=== PATIENT | male | born 1985 | race Caucasian/White ===

== ENCOUNTER 2017-05-02 18:39 | Emergency (ER) | payer MEDICAID ==
[2017-05-02 18:52] VITALS: TEMP 98.4
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
[2017-05-02] MEDS ORDERED: NS 1,000 ML IV ONE (19:22)
[2017-05-02 19:39] LABS: % IMMATURE GRANULYOCYTES 0.2 % (0.0-1.1); ABSOLUTE IMMATURE GRANULOCYTES 0.02 10^3/uL (0.00-0.10); ADD DIFF? NO; ADD MORPH? NO; ADD SCAN? NO; ATYPICAL LYMPHOCYTE FLAG 20 (0-99); FRAGMENT RBC FLAG 0 (0-99); HEMATOCRIT 43.1 % (40.0-51.0); HEMOGLOBIN 14.9 g/dL (13.7-17.5); LEFT SHIFT FLG 0 (0-99); LIPEMIA HEMOLYSIS FLAG 90 (0-99); MEAN CELL HEMOGLOBIN 31.2 pg (27.9-34.1); MEAN CELL HEMOGLOBIN CONCENTR. 34.6 g/dL (32.4-36.7); MEAN CELL VOLUME 90.2 fL (81.5-99.8); MEAN PLATELET VOLUME 9.3 fL (8.7-11.7); PLATELET CLUMPS FLAG 10 (0-99); PLATELET COUNT 304 10^3/uL (150-400); RED BLOOD CELL COUNT 4.78 10^6/uL (4.40-6.38); RED CELL DISTRIBUTION WIDTH 13.2 % (11.5-15.2)
[2017-05-02 19:52] LABS: ANION GAP 11 mEq/L (8-16); C-REACTIVE PROTEIN < 5.0 mg/L (<10.0); CARBON DIOXIDE 26 mEq/l (22-31); CHLORIDE 101 mEq/L (97-110); CREATININE 0.8 mg/dL (0.7-1.3); GLOMERULAR FILTRATION RATE > 60; GLUCOSE 98 mg/dL (70-100); SODIUM 138 mEq/L (134-144)
[2017-05-02 19:59] LABS: SEDIMENTATION RATE 5 MM/HR (0-15)
[2017-05-02] MEDS ORDERED: CLINDAMYCIN 150 MG CAP PO ONE (20:28)
[2017-05-02 20:36] VITALS: BP 113/77; PULSE 68; RESP 18; O2SAT 95
== END 2017-05-02 20:40 | disposition home or self-care (01) ==
DX: M79.642 Pain in left hand (principal); F17.200 Nicotine dependence, unspecified, uncomplicated; E86.9 Volume depletion, unspecified

== ENCOUNTER 2017-06-18 08:54 | Emergency (ER) | payer MEDICAID ==
[2017-06-18 09:00] VITALS: BP 112/83; PULSE 87; RESP 20; TEMP 97.9; O2SAT 98
[2017-06-18] MEDS ORDERED: ONDANSETRON DISINTEGRATING 4 MG TAB PO ONE (09:10)
[2017-06-18] MEDS ORDERED: ALBUTEROL 60 PUFFS/8 GM MDI IH ONE (09:11)
[2017-06-18] MEDS ORDERED: BENZONATATE 100 MG CAP PO ONE (09:12)
[2017-06-18] MEDS ORDERED: ALBUTEROL INH PREPACK MDI TAKEHOME ONE ×2 (09:15→09:17)
--- NOTE | 2017-06-18 09:17 | EDPHY ---
H & P Time Seen by Provider: 06/18/17 08:55 HPI/ROS: CHIEF COMPLAINT: Cough, and vomiting HISTORY OF PRESENT ILLNESS: Patient is had a cough for the last 5 days. A little bit of green sputum but not short of breath. He describes nausea any throat 3 days ago but not since. No abdominal pain or diarrhea. He still has nausea today. Patient continues to smoke. Denies fever or chills. He has a mild sore throat. No difficulty breathing or swallowing. REVIEW OF SYSTEMS: Eye: no change in vision ENT: Ears feel full Cardiac: no chest pain or syncope Pulmonary: HPI no hemoptysis Abdomen: no vomiting, diarrhea, abdominal pain Musculoskeletal: no back pain or leg swelling Skin: no rash Neuro: no headache Constitutional: Symptomatic fever and chills : no urinary symptoms A comprehensive 10 point review of systems is otherwise negative aside from elements mentioned in the history of present illness. PAST MEDICAL HISTORY: Knee surgery Social history: Tobacco smoker General Appearance: Alert and conversant, cooperative. Eyes: No scleral icterus. ENT, Mouth: Normal mucous membranes. Normal tympanic membranes. No trismus. Uvula midline. Some pharyngeal erythema but no exudate or vesicles or tonsillar swelling. Respiratory: Patient has bilateral expiratory wheezing but speaks in full sentences, no focal lung sounds. Cardiovascular: Regular rate and rhythm. Gastrointestinal: Abdomen is soft and non tender. Neurological: Alert, face symmetric, normal motor and sensory in extremities. Skin: Warm and dry, no rashes. Musculoskeletal: No peripheral edema. No calf tenderness. Psychiatric: Not agitated. Emergency Department course/MDM: Patient is supposed to be on Suboxone this week and is referred to his regular provider for that. Zofran 0 DT he has some nausea today but has not vomited for 3 days. Does not appear to meet clinical indications for antibiotics. Likely URI, will be treated with cough medication and albuterol MDI. Smoking Status: Current every day smoker Constitutional: Initial Vital Signs Temperature (C) 36.6 C 06/18/17 08:56 Heart Rate 87 06/18/17 08:56 Respiratory Rate 20 06/18/17 08:56 Blood Pressure 112/83 H 06/18/17 08:56 O2 Sat (%) 98 06/18/17 08:56 O2 Delivery Mode Room Air Allergies/Adverse Reactions: No Known Allergies Allergy (Verified 06/18/17 08:56) Home Medications: Medication Instructions Recorded Benzonatate [Tessalon Pearles (RX)] 100 mg PO Q8 PRN #15 cap 06/18/17 Ondansetron Odt [Zofran Odt] 4 mg PO Q4PRN #6 tab 06/18/17 MDM/Departure - MDM Medications Given: Discontinued Medications Albuterol (Proventil Inhaler) 2 puffs IH EDNOW ONE Stop: 06/18/17 09:12 Last Admin: 06/18/17 09:20 Dose: Not Given Albuterol Sulfate (Proventil Inh Prepack) 1 mdi TAKEHOME EDNOW ONE Stop: 06/18/17 09:18 Last Admin: 06/18/17 09:18 Dose: 1 mdi Benzonatate (Tessalon Pearles) 200 mg PO EDNOW ONE Stop: 06/18/17 09:13 Last Admin: 06/18/17 09:19 Dose: 200 mg Ondansetron HCl (Zofran Odt) 4 mg PO EDNOW ONE Stop: 06/18/17 09:11 Last Admin: 06/18/17 09:19 Dose: 4 mg Differential Diagnosis: I think it is unlikely he has pulmonary embolism or pneumonia, strep throat, retropharyngeal abscess or other deep space neck infection. - Depart Disposition: Home, Routine, Self-Care Clinical Impression: URI (upper respiratory infection) Qualifiers: URI type: unspecified URI Qualified Code(s): J06.9 - Acute upper respiratory infection, unspecified Condition: Good Instructions: Albuterol (By breathing), Upper Respiratory Infection (ED) Additional Instructions: Use inhaler 2 puffs every 6 hr as needed for the next week for cough or shortness of breath Prescriptions: Benzonatate [Tessalon Pearles (RX)] 100 mg PO Q8 PRN #15 cap PRN Reason: Cough, Moderate Ondansetron Odt [Zofran Odt] 4 mg PO Q4PRN #6 tab Referrals: [facility],. [Clinic] - As per Instructions
== END 2017-06-18 09:27 | disposition home or self-care (01) ==
DX: J06.9 Acute upper respiratory infection, unspecified (principal); F17.200 Nicotine dependence, unspecified, uncomplicated